=== PATIENT | male | born 1960 | race Caucasian/White ===

== ENCOUNTER 2017-10-23 09:00 | Emergency (ER) | payer OTHER ==
[2017-10-23 09:00] VITALS: BMI 35.9
[2017-10-23] MEDS ORDERED: Fluorescein 1 mg Ophthalmic Strip OS ONE (09:52)
[2017-10-23] MEDS ORDERED: Erythromycin 0.5% Ophth Oint 1 APPLIC/3.5 G OS STA (09:53)
--- NOTE | 2017-10-23 09:57 | C.PDOC ---
History Of Present Illness 57 years old male presents to ED for complaints of redness and discharge from left eye associated with headache that began yesterday. Patient states "I got floor glue in my eye and I think I have an infection." Patient states incident happened at his apartment. Denies SOB, chest pain, abdominal pain or any other physical complaints. Patient has Hx of HTN and is pre-diabetic. Patient reports taking losartan 50 for the blood pressure but states he did not take the medication today. Time Seen by Provider: 10/23/17 09:42 Chief Complaint (Nursing): Eye Problem History Per: Patient History/Exam Limitations: no limitations Onset/Duration Of Symptoms: Days (1) Current Symptoms Are (Timing): Still Present Injury To Eye?: Yes Quality: "Pain" Wears Contact Lens?: No Associated Symptoms: Pain, Itching, Discharge From Eye. denies: Decreased Vision, Swelling Recent travel outside of the [place]: No Past Medical History Reviewed: Historical Data, Nursing Documentation, Vital Signs Vital Signs: Last Vital Signs Temp 97.7 F 10/23/17 11:20 Pulse 62 10/23/17 11:20 Resp 14 10/23/17 11:20 BP 173/98 H 10/23/17 11:20 Pulse Ox 98 10/23/17 11:50 - Medical History PMH: Diabetes, HTN Surgical History: Appendectomy - [facility] Procedures INFLUENZA VACCINATION (04/09/14) Family History: States: Hypertension - Social History Hx Tobacco Use: No Hx Alcohol Use: Yes (stopped 6 months ago) Hx Substance Use: No - Immunization History Hx Tetanus Toxoid Vaccination: No Hx Influenza Vaccination: No Hx Pneumococcal Vaccination: No Review Of Systems Constitutional: Negative for: Fever, Chills Eyes: Positive for: Pain, Redness (Left eye ), Other (Left eye discharge). Negative for: Vision Change Cardiovascular: Negative for: Chest Pain Respiratory: Negative for: Shortness of Breath Gastrointestinal: Negative for: Nausea, Vomiting, Abdominal Pain, Diarrhea Skin: Negative for: Rash Neurological: Positive for: Headache. Negative for: Weakness, Numbness, Dizziness Physical Exam - Physical Exam Appears: Non-toxic, No Acute Distress Skin: Warm, Dry Head: Atraumatic, Normacephalic Eye(s): bilateral: PERRL, right: Other (subconjunctival hematoma with discharge and crusting) Oral Mucosa: Moist Neck: Supple Chest: Symmetrical, No Tenderness Cardiovascular: Rhythm Regular, No Murmur Neurological/Psych: Oriented x3, Normal Speech Gait: Steady ED Course And Treatment O2 Sat by Pulse Oximetry: 98 (RA) Pulse Ox Interpretation: Normal Medical Decision Making Medical Decision Making: Plan: - Irrigate eye - [id number] A.t - Erythromycin - Glue over cornea hematoma - Irrigated with water and checked again - Some glue on conjunctival area - Tetracaine applied - Referred to eye clinic. Plan is to send home with Antibiotics and follow up instructions. Re-Evaluation: - Patient feels better - Blood pressure improved: 173/98 Patient is stable for discharge and will be advised to follow up with Ophthalmology. 11:49AM: - Spoke with Dr. Kramer, Access Lead. Disposition - Disposition Referrals: Hernan Kramer [Staff Provider] - Disposition: HOME/ ROUTINE Disposition Time: 12:04 Condition: GOOD Additional Instructions: Follow up with the ophthalmalogist tomorrow. call for an appointment as soon as possible at [facility]. Take tylenol for pain. Prescriptions: Erythromycin 0.5% [Erythromycin] 1 applic OS Q6 7 Days #1 tube Forms: [employer] (I[place]ic), Work Excuse - Clinical Impression Clinical Impression: Chemical conjunctivitis, Conjunctivitis - Scribe Statement The provider has reviewed the documentation as recorded by the Biaibada Tobias All medical record entries made by the Biaibada were at my direction and personally dictated by me. I have reviewed the chart and agree that the record accurately reflects my personal performance of the history, physical exam, medical decision making, and the department course for this patient. I have also personally directed, reviewed, and agree with the discharge instructions and disposition.
[2017-10-23] MEDS ORDERED: Fluorescein 1 mg Ophthalmic Strip ONE ×2 (09:59→10:09)
[2017-10-23] MEDS ORDERED: Tetracaine 0.5% Ophth (OR ONLY) ONE ×2 (10:01→10:10)
[2017-10-23] MEDS ORDERED: Erythromycin 0.5% Ophth Oint 1 APPLIC/3.5 G ONE (10:09)
--- NOTE | 2017-10-23 10:12 | C.PDOC ---
Time Seen by Provider: 10/23/17 09:42 Chief Complaint (Nursing): Eye Problem Past Medical History Vital Signs: Last Vital Signs Temp 98.3 F 10/23/17 09:10 Pulse 82 10/23/17 09:10 Resp 16 10/23/17 09:10 BP 215/118 H 10/23/17 09:10 Pulse Ox 98 10/23/17 09:10 - Medical History PMH: Diabetes, HTN Denies: Chronic Kidney Disease Surgical History: Appendectomy - [facility] Procedures INFLUENZA VACCINATION (04/09/14) Family History: States: Hypertension - Social History Hx Tobacco Use: No Hx Alcohol Use: Yes (stopped 6 months ago) Hx Substance Use: No - Immunization History Hx Tetanus Toxoid Vaccination: No Hx Influenza Vaccination: No Hx Pneumococcal Vaccination: No ED Course And Treatment O2 Sat by Pulse Oximetry: 98 Disposition - Disposition
[2017-10-23] MEDS ORDERED: Tetracaine 0.5% Ophth 2 ML BOTTLE OS ONE (10:14)
[2017-10-23] MEDS ORDERED: Tetracaine 0.5% Ophth 2 ML BOTTLE OD ONE (10:14)
[2017-10-23 11:21] VITALS: PULSE 62; TEMP 97.7
[2017-10-23 11:50] VITALS: O2SAT 98
[2017-10-23 12:24] VITALS: BP 137/84; RESP 18
== END 2017-10-23 12:22 | disposition home or self-care (01) ==
LOC: C.ER 09:00
DX: H10.212 Acute toxic conjunctivitis, left eye (principal); H10.9 Unspecified conjunctivitis; E11.9 Type 2 diabetes mellitus without complications; I10 Essential (primary) hypertension